=== PATIENT | female | born 1935 | race Caucasian/White ===

== ENCOUNTER 2018-11-12 19:03 | Inpatient (IN) ==
[2018-11-12] MEDS ORDERED: 0.9 % Sodium Chloride 1,000 ML IVC ONE (19:26)
[2018-11-12] MEDS ORDERED: Ipratropium/Albuterol Neb 3 ML IH ONE (19:28)
--- NOTE | 2018-11-12 19:49 | Emergency Department Note ---
Disposition Clinical Impression: Hyponatremia Disposition: Admitted As Inpatient Condition: Fair Referrals: Sherita Kline APN [Primary Care Provider] - Forms: ED Satisfaction Letter Time of Disposition: 22:13 General Adult HPI - General Chief complaint: ED Extremity Problem,Nontraumatic Stated complaint: Difficulty breathing weakness Time Seen by Provider: 11/12/18 19:10 Source: patient, family, EMS Limitations: no limitations Nursing Notes Reviewed: Yes Vital Signs Reviewed: Yes - History of Present Illness HPI Narrative: Ms Devlin was taken to the emergency department by EMS tonight for generalized weakness. No appetite for the last 5 days. She has had some muscle aches. She had a fever about 3 weeks ago per her niece who accompanies her and was on doxycycline but finished that about a week ago. She does have home oxygen for the last 2 years for COPD he has not smoked in 31 years. She has had diffuse muscle aches no nausea vomiting or diarrhea. No stool for 3 days usually has daily formed bowel movement. No change in urinary habits. She has had some pain on urination for weeks. She has been going frequently for several years now. She has had a mild headache no vision change no ear or throat pain but she has had some sinus drainage for the last 5 days. No chest pain but she is more short of breath. Some mild generalized abdominal pain. She felt better after a DuoNeb was given in route to the emergency room. 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 She can ambulate with a walker. No speech issues able to swallow normal food since the stroke in 2015. 2 daughters live with her. Pain Scale: 6 - Related Data Home Medications Medication Instructions Recorded Confirmed Furosemide [Lasix] 40 mg PO DAILY PRN 11/12/18 11/12/18 Previous Rx's Medication Instructions Recorded Acetaminophen [Tylenol] 650 mg PO Q6HR PRN #0 tablet 05/23/16 Albuterol Sulfate [Albuterol 2 puff IH [id number] PRN #0 inhaler 05/23/16 Inhaler] Aspirin Enteric Coated [Aspirin EC] 81 mg PO DAILY #0 tablet. 05/23/16 Atenolol [Tenormin] 25 mg PO DAILY #0 tablet 05/23/16 Budesonide/Formoterol 80/4.5 1 puff IH BIDR #0 inhaler 05/23/16 [Symbicort 80/4.5] Clopidogrel [Plavix] 75 mg PO DAILY #0 tablet 05/23/16 Escitalopram [Lexapro] 20 mg PO DAILY #30 tablet 05/23/16 Ibuprofen [Motrin] 400 mg PO Q8HR PRN #0 tablet 05/23/16 LORazepam [Ativan] 0.5 mg PO TID PRN #0 tablet 05/23/16 Omeprazole [PriLOSEC] 20 mg PO DAILY@0630 #0 capsule. 05/23/16 Allergies Allergy/AdvReac Type Severity Reaction Status Date / Time No Known Allergies Allergy Verified 11/12/18 19:22 Constitutional: Reports: fever, weakness. Denies: chills Eyes: Denies: vision change ENT ED: Reports: congestion. Denies: ear pain, throat pain, dysphagia Cardiovascular: Reports: dyspnea on exertion, other (Some dizziness and lightheadedness). Denies: chest pain, syncope Respiratory: Reports: cough, dyspnea, sputum production Gastrointestinal: Reports: abdominal pain. Denies: nausea, vomiting, diarrhea, melena, hematochezia Genitourinary: Reports: as per HPI, frequency Musculoskeletal: Reports: myalgia Integumentary: Denies: rash Neurological: Reports: headache Endocrine: Reports: fatigue Hematological/Lymphatic: Denies: easy bleeding, easy bruising Past Medical History - Past Medical History Medical history: Reports: arthritis, asthma, COPD, diabetes, fibromyalgia, hypertension Surgical history: Reports: JAD/BSO Psychiatric history: Reports: depression [employer] history: Reports: non-contributory - Social History Smoking Status: Never smoker Smokeless Tobacco Status: No Alcohol use: Reports: none Drug use: Reports: none Physical Exam - General Limitations: no limitations General appearance: alert, in no apparent distress - Head Head exam: atraumatic, normocephalic - Eye Eye exam: Present: normal appearance. Absent: scleral icterus - ENT ENT exam: normal oropharynx, normal external ear exam - Neck Neck exam: Present: normal inspection, full ROM - Chest Chest inspection: Present: normal inspection, symmetric chest wall rise - Respiratory Respiratory exam: Present: respiratory distress (Able to speak in full sentences), wheezes (End expiratory wheezes bilaterally symmetrically with good air exchange), accessory muscle use (Subcostal retractions), other (Inspiratory wet crackles right sided which do not clear with coughing) - Cardiovascular Cardiovascular exam: Present: regular rate, normal rhythm, normal heart sounds - Abdominal Exam Abdominal exam: Present: soft, distention, normal bowel sounds Abdominal tenderness: Present: diffuse, mild - Extremities Exam Extremities exam: Absent: pedal edema, calf tenderness (No calf cord erythema or edema) - Neurological Exam Neurological exam: Present: alert, oriented X3 - Psychiatric Psychiatric exam: Present: normal affect, normal mood - Skin Skin exam: Present: warm, dry Course Vital Signs Temperature 98.1 F 11/12/18 19:18 Pulse Rate 81 11/12/18 19:18 Respiratory Rate 20 11/12/18 19:18 Blood Pressure 155/63 11/12/18 19:18 O2 Sat by Pulse Oximetry 95 11/12/18 19:18 Temperature 98.1 F 11/12/18 19:18 Pulse Rate 82 11/12/18 21:34 Respiratory Rate 19 11/12/18 21:34 Blood Pressure 175/81 11/12/18 21:34 O2 Sat by Pulse Oximetry 98 11/12/18 21:34 Oxygen Delivery Oxygen Delivery Nasal Cannula Medical Decision Making - MDM Narrative Medical decision making narrative: Hyponatremia. Probably secondary to decreased by mouth intake this week. One 24s and appreciable drop from her most recent reading of 134. It might be prudent to have her come in to the hospital for IV fluids. She did receive 1.5 L in the emergency department. We will maintain her a 125 and recheck her sodium in the morning. She is in agreement with admission. Magnesium 1.5. She was given magnesium 800 mg here in the ER 1. COPD exacerbation. Productive cough. No infiltrate on chest x-ray but she does have some evidence of pneumonia on the right side on auscultation. White count however is not increased. Nonetheless she was on doxycycline just a couple of weeks ago and we will add Levaquin 500 mg IV daily. She does have home oxygen but she seems to have some retractions a couple of hours after DuoNeb is given although subjective relief as reported immediately thereafter. It might be prudent to keep her in the hospital for frequent nebs. Blood glucose is 96 so we will add Solu-Medrol as well. Saturations 96% on nasal cannula. I spoke with the covering hospitalist here at [facility] presented the case. She accepted admission. She is in stable condition awaiting transfer to the floor. - Medical Records Medical records reviewed: Yes I reviewed the patient's medical records. - Lab Data Lab results reviewed: Yes I reviewed the patient's lab results. Result diagrams: 11/12/18 20:33 11/12/18 20:52 Lab Results 11/12/18 11/12/18 11/12/18 Range/Units 20:33 20:52 21:07 WBC 5.9 (4.3-11.1) K/mcL RBC 4.89 (3.82-4.97) M/mcL Hgb 14.5 (11.5-15.4) g/dL Hct 44.6 (35.3-44.9) % MCV 91.2 (83.0-100.0) fL MCH 29.7 (28.0-33.3) pg MCHC 32.5 (31.6-35.5) g/dL RDW 15.1 H (11.5-14.5) % Plt Count 182 (140-400) K/mcL MPV 9.6 (9.4-12.4) fL Immature Gran % 0.3 (0-4) % Seg Neutrophils % 68.7 % Lymphocytes % 20.9 % Monocytes % 9.7 % Eosinophils % 0.2 % Basophils % 0.2 % Neutrophils # 4.0 (1.6-8.9) K/mcL Lymphocytes # 1.2 (0.6-4.6) K/mcL Monocytes # 0.6 (0.0-1.3) K/mcL Eosinophils # 0.0 (0.0-0.6) K/mcL Basophils # 0.0 (0.0-0.2) K/mcL D-Dimer 456 (0-500) ng/mLFEU Sodium 124 L (136-145) mEq/L Potassium 3.7 (3.5-5.1) mEq/L Chloride 90 L (98-107) mEq/L Carbon Dioxide 21 L (23-29) mEq/L BUN 12 (8-23) mg/dL Creatinine 0.68 (0.60-1.20) mg/dL Est GFR ( Amer) > 60 (> 60) Est GFR (Non-Af Amer) > 60 (> 60) BUN/Creatinine Ratio 18 (6-26) Glucose 120 H (70-105) mg/dL POC Glucose (70-99) mg/dL Calculated Osmolality 259 L (280-300) Calcium 8.9 (8.6-10.3) mg/dL Magnesium 1.5 L (1.6-2.6) mg/dL Total Bilirubin 0.6 (0.3-1.0) mg/dL AST 24 (13-39) Units/L ALT 15 (7-52) Units/L Alkaline Phosphatase 79 (34-104) Units/L Troponin I < 0.03 (< 0.04) ng/mL B-Natriuretic Peptide (Less than 100) pg/mL Serum Total Protein 6.2 L (6.4-8.9) g/dL Albumin 3.3 L (3.5-5.7) g/dL Globulin 2.9 (2.4-3.5) g/dL Albumin/Globulin Ratio 1.1 (1.1-2.2) Lipase 7 L (11-82) Units/L TSH 0.836 (0.340-5.600) mcIU/mL Urine Color (Yellow) Urine Clarity (Clear) Urine pH (5.0-8.0) pH Units Ur Specific [place] (1.010-1.025) Urine Protein (Neg-Trace) mg/dL Urine Glucose (UA) (Normal) mg/dL Urine Ketones (Negative) mg/dL Urine Blood (Negative) Urine Nitrite (Negative) Urine Bilirubin (Negative) Urine Urobilinogen (Normal) mg/dL Ur Leukocyte Esterase (Negative) Urine Microscopic RBC (0-3) per hpf Urine Microscopic WBC (0-3) per hpf Ur Squamous Epith Cells (None-Few) per lpf Ur Transition Epith Cell (None-Few) per hpf Urine Bacteria (None-Few) per hpf Ur Culture Indicated? (NO) 11/12/18 11/12/18 11/12/18 Range/Units 21:07 22:07 22:19 WBC (4.3-11.1) K/mcL RBC (3.82-4.97) M/mcL Hgb (11.5-15.4) g/dL Hct (35.3-44.9) % MCV (83.0-100.0) fL MCH (28.0-33.3) pg MCHC (31.6-35.5) g/dL RDW (11.5-14.5) % Plt Count (140-400) K/mcL MPV (9.4-12.4) fL Immature Gran % (0-4) % Seg Neutrophils % % Lymphocytes % % Monocytes % % Eosinophils % % Basophils % % Neutrophils # (1.6-8.9) K/mcL Lymphocytes # (0.6-4.6) K/mcL Monocytes # (0.0-1.3) K/mcL Eosinophils # (0.0-0.6) K/mcL Basophils # (0.0-0.2) K/mcL D-Dimer (0-500) ng/mLFEU Sodium (136-145) mEq/L Potassium (3.5-5.1) mEq/L Chloride (98-107) mEq/L Carbon Dioxide (23-29) mEq/L BUN (8-23) mg/dL Creatinine (0.60-1.20) mg/dL Est GFR ( Amer) (> 60) Est GFR (Non-Af Amer) (> 60) BUN/Creatinine Ratio (6-26) Glucose (70-105) mg/dL POC Glucose 96 (70-99) mg/dL Calculated Osmolality (280-300) Calcium (8.6-10.3) mg/dL Magnesium (1.6-2.6) mg/dL Total Bilirubin (0.3-1.0) mg/dL AST (13-39) Units/L ALT (7-52) Units/L Alkaline Phosphatase (34-104) Units/L Troponin I (< 0.04) ng/mL B-Natriuretic Peptide 22 (Less than 100) pg/mL Serum Total Protein (6.4-8.9) g/dL Albumin (3.5-5.7) g/dL Globulin (2.4-3.5) g/dL Albumin/Globulin Ratio (1.1-2.2) Lipase (11-82) Units/L TSH (0.340-5.600) mcIU/mL Urine Color Yellow (Yellow) Urine Clarity Clear (Clear) Urine pH 6.5 (5.0-8.0) pH Units Ur Specific [place] 1.020 (1.010-1.025) Urine Protein 30 H (Neg-Trace) mg/dL Urine Glucose (UA) Normal (Normal) mg/dL Urine Ketones 15 H (Negative) mg/dL Urine Blood Negative (Negative) Urine Nitrite Negative (Negative) Urine Bilirubin Negative (Negative) Urine Urobilinogen Normal (Normal) mg/dL Ur Leukocyte Esterase Negative (Negative) Urine Microscopic RBC 0-3 (0-3) per hpf Urine Microscopic WBC 0-3 (0-3) per hpf Ur Squamous Epith Cells Many H (None-Few) per lpf Ur Transition Epith Cell Few (None-Few) per hpf Urine Bacteria Few (None-Few) per hpf Ur Culture Indicated? NO (NO) - Radiology Data Radiology results reviewed: Yes I reviewed the patient's radiology results. - EKG Data EKG #1 EKG attestation: Yes I reviewed and interpreted this EKG. EKG results narrative: EKG as interpreted by me normal sinus rhythm 91 bpm. Left axis deviation. T wave inversion one half box aVL. This appears to be an isolated finding. No Q waves. No evidence of hypertrophy. No comparison available.
[2018-11-12 20:40] LABS: Basophils % 0.2 %; Eosinophils % 0.2 %; Hematocrit 44.6 % (35.3-44.9); Hemoglobin 14.5 g/dL (11.5-15.4); Immature Granulocytes % 0.3 % (0-4); Lymphocytes # 1.2 K/mcL (0.6-4.6); Lymphocytes % 20.9 %; Mean Corpuscular HGB Conc 32.5 g/dL (31.6-35.5); Mean Corpuscular Hemoglobin 29.7 pg (28.0-33.3); Mean Corpuscular Volume 91.2 fL (83.0-100.0); Mean Platelet Volume 9.6 fL (9.4-12.4); Monocytes # 0.6 K/mcL (0.0-1.3); Monocytes % 9.7 %; Platelet Count 182 K/mcL (140-400); Red Blood Count 4.89 M/mcL (3.82-4.97); Red Cell Distribution Width 15.1 % (11.5-14.5); Segmented Neutrophils % 68.7 %
[2018-11-12] MEDS ORDERED: 0.9 % Sodium Chloride 500 ML IVC ONE (20:57)
[2018-11-12 21:39] LABS: Alanine Aminotransferase 15 Units/L (7-52); Albumin 3.3 g/dL (3.5-5.7); Albumin/Globulin Ratio 1.1 (1.1-2.2); Alkaline Phosphatase 79 Units/L (34-104); Aspartate Amino Transferase 24 Units/L (13-39); Bilirubin,Total 0.6 mg/dL (0.3-1.0); Calcium 8.9 mg/dL (8.6-10.3); Carbon Dioxide 21 mEq/L (23-29); Chloride 90 mEq/L (98-107); Globulin 2.9 g/dL (2.4-3.5); Lipase 7 Units/L (11-82); Magnesium 1.5 mg/dL (1.6-2.6); Potassium 3.7 mEq/L (3.5-5.1); Sodium 124 mEq/L (136-145); Thyroid Stimulating Hormone 0.836 mcIU/mL (0.340-5.600); Total Protein 6.2 g/dL (6.4-8.9); Troponin I < 0.03 ng/mL (< 0.04); eGFR For Non-African Americans > 60 (> 60)
[2018-11-12] MEDS ORDERED: Levofloxacin 500 MG/100 ML 500 MG/100 ML BAG IVPB ONE (22:11)
[2018-11-12 22:12] LABS: Bilirubin,Urine Negative (Negative); Blood,Urine Negative (Negative); Clarity,Urine Clear (Clear); Color,Urine Yellow (Yellow); Glucose,Urine (UA) Normal (Normal); Ketones,Urine 15 mg/dL (Negative); Leukocyte Esterase,Urine Negative (Negative); Nitrite,Urine Negative (Negative); PH,Urine 6.5 pH Units (5.0-8.0); Protein,Urine 30 mg/dL (Neg-Trace); Urobilinogen,Urine Normal (Normal)
[2018-11-12] MEDS ORDERED: Magnesium Oxide 400 MG TABLET PO SCH (22:15)
[2018-11-12 22:33] LABS: BUN/Creatinine Ratio 18 (6-26); Blood Urea Nitrogen 12 mg/dL (8-23); Glucose 120 mg/dL (70-105); Osmolality,Calculated 259 (280-300)
[2018-11-12] MEDS ORDERED: methylPREDNISolone 125 MG/2 ML VIAL IVP ONE (22:36)
[2018-11-12 22:49] LABS: RBC,Urine 0-3 per hpf (0-3)
[2018-11-12 22:50] LABS: Bacteria,Urine Few per hpf (None-Few); Squamous Epithelial Cell,Urine Many per lpf (None-Few); Transitional Epi Cells,Urine Few per hpf (None-Few); WBC,Urine 0-3 per hpf (0-3)
[2018-11-12] MEDS ORDERED: Ondansetron 4 MG/2 ML VIAL IVP PRN (23:27)
[2018-11-12] MEDS ORDERED: Naloxone 0.4 MG/ML INJ IVP PRN (23:27)
[2018-11-13] MEDS: Levofloxacin 500 MG/100 ML 500 MG/100 ML BAG IVPB SCH ×2 (00:26→21:52)
[2018-11-13] MEDS: MethylPREDNISolone 40 MG/ML VIAL IVP SCH ×5 (00:26→23:02)
[2018-11-13] MEDS: 0.9 % Sodium Chloride 1,000 ML IVC SCH ×2 (00:35→09:26)
[2018-11-13 05:59] LABS: BUN/Creatinine Ratio 19 (6-26); Blood Urea Nitrogen 10 mg/dL (8-23); Calcium 8.1 mg/dL (8.6-10.3); Carbon Dioxide 27 mEq/L (23-29); Chloride 93 mEq/L (98-107); Glucose 179 mg/dL (70-105); Magnesium 1.7 mg/dL (1.6-2.6); Osmolality,Calculated 268 (280-300); Potassium 3.4 mEq/L (3.5-5.1); Sodium 127 mEq/L (136-145); eGFR For Non-African Americans > 60 (> 60)
[2018-11-13] MEDS: *HR* Enoxaparin 40 MG/0.4 ML SYRINGE SQ SCH (06:35)
[2018-11-13] MEDS: Magnesium Oxide 400 MG TABLET PO SCH (09:26)
[2018-11-13] MEDS: Aspirin Enteric Coated 81 MG Tablet PO SCH (09:27)
[2018-11-13] MEDS: Ipratropium/Albuterol Neb 3 ML IH PRN ×3 (10:06→19:27)
--- NOTE | 2018-11-13 15:51 | Internal Med History&Physical ---
Date of Encounter: 11/13/18 Time of Encounter: 14:30 Assessment and Plan (1) Acute exacerbation of chronic obstructive pulmonary disease (COPD) Current visit: Yes Status: Acute DuoNeb's steroid [place] cannula oxygen (2) Failure to thrive Current visit: Yes Status: Acute Assist with meals mechanical soft diet We will check vitamin levels Add Megace Qualifiers: Failure to thrive age range: in adult Qualified Code(s): R62.7 - Adult failure to thrive (3) Hyponatremia Current visit: Yes Status: Acute IV normal saline with potassium for hypokalemia Internal Medicine - H&P: HPI Chief complaint: acute COPD exacerbation, failure to thrive Admitted From: Home History of present illness: Ms. Devlin is a 82 year old female who presented to ED from home her daughter brought her in. Patient has increased shortness of breath and wheezing. She has been on 3 L nasal cannula oxygen at home chronically for moderate severe COPD. In the emergency room patient was treated with steroid and DuoNeb and maintained oxygenation on 3 L nasal cannula. Patient has become increasingly weak and debilitated. Lately not getting out of bed at home. Has not been eating well for months and has not eaten much at all in the past week per report. Patient has a mild cough but sputum is scant. Her sodium is low. Her potassium is low. Her creatinine is low. Her magnesium is low. Her albumin is low. Past Med Surg Social Fam HX - Past Medical History Medical history: arthritis, asthma, COPD, diabetes, fibromyalgia, hypertension Psychiatric history: depression - Past Surgical History Surgical History: hysterectomy, JAD/BSO - Social History Smoking Status: Never smoker Smokeless Tobacco Status: No Alcohol use: none Drug use: none Internal Medicine - H&P: Meds Acetaminophen [Tylenol] 650 mg PO Q6HR PRN #0 tablet 05/23/16 [Rx] Albuterol Sulfate [Albuterol Inhaler] 2 puff IH [id number] PRN #0 inhaler 05/23/16 [Rx] Aspirin Enteric Coated [Aspirin EC] 81 mg PO DAILY #0 tablet. 05/23/16 [Rx] Atenolol [Tenormin] 25 mg PO DAILY #0 tablet 05/23/16 [Rx] Budesonide/Formoterol 80/4.5 [Symbicort 80/4.5] 1 puff IH BIDR #0 inhaler 05/23/16 [Rx] Clopidogrel [Plavix] 75 mg PO DAILY #0 tablet 05/23/16 [Rx] Escitalopram [Lexapro] 20 mg PO DAILY #30 tablet 05/23/16 [Rx] Ibuprofen [Motrin] 400 mg PO Q8HR PRN #0 tablet 05/23/16 [Rx] LORazepam [Ativan] 0.5 mg PO TID PRN #0 tablet 05/23/16 [Rx] Omeprazole [PriLOSEC] 20 mg PO DAILY@0630 #0 capsule. 05/23/16 [Rx] Furosemide [Lasix] 40 mg PO DAILY PRN 11/12/18 [History] Allergy/AdvReac Type Severity Reaction Status Date / Time No Known Allergies Allergy Verified 11/12/18 19:22 All Systems PM: A 10-system review of systems was performed and is negative for pertinent findings except as documented above in the HPI. - Constitutional Vitals: Temp Pulse Resp BP Pulse Ox 97.4 F L 67 18 166/70 96 11/13/18 11:33 11/13/18 11:33 11/13/18 15:17 11/13/18 11:33 11/13/18 15:17 General appearance: Present: cooperative, mild distress Exam: Physical Exam - General Limitations: no limitations General appearance: alert, frail and fatigued hypokinetic laying in the bed but in no apparent distress - Head Head exam: atraumatic, normocephalic - Eye Eye exam: Present: normal appearance. Absent: scleral icterus - ENT ENT exam: normal oropharynx, normal external ear exam - Neck Neck exam: Present: normal inspection, full ROM no bruit - Chest Chest inspection: Present: normal inspection, symmetric chest wall rise - Respiratory Respiratory exam: Present: Musical wheezes fair air exchange accessory muscle use (Subcostal retractions) - Cardiovascular Cardiovascular exam: Present: regular rate, normal rhythm, normal heart sounds distant - Abdominal Exam Abdominal exam: Present: soft, distention, normal bowel sounds Abdominal tenderness: Present: diffuse, mild - Extremities Exam Extremities exam: Absent: pedal edema, calf tenderness (No calf cord erythema or edema) - Neurological Exam Neurological exam: Present: alert, oriented X3 - Psychiatric Psychiatric exam: Present: Withdrawn with flat affect - Skin Skin exam: Present: warm, dry pale Internal Med - H&P Results - Labs CBC & Chem 7: 11/12/18 20:33 11/13/18 05:35 Labs: Short CBC 11/12/18 Range/Units 20:33 WBC 5.9 (4.3-11.1) K/mcL Hgb 14.5 (11.5-15.4) g/dL Hct 44.6 (35.3-44.9) % Plt Count 182 (140-400) K/mcL Neutrophils # 4.0 (1.6-8.9) K/mcL BMP 11/12/18 11/13/18 20:52 05:35 Sodium 124 L 127 L Potassium 3.7 3.4 L Chloride 90 L 93 L Carbon Dioxide 21 L 27 BUN 12 10 Creatinine 0.68 0.53 L Glucose 120 H 179 H Calcium 8.9 8.1 L Cardiac Enzymes 11/12/18 Range/Units 20:52 Troponin I < 0.03 (< 0.04) ng/mL Liver Function 11/12/18 Range/Units 20:52 Total Bilirubin 0.6 (0.3-1.0) mg/dL AST 24 (13-39) Units/L ALT 15 (7-52) Units/L Alkaline Phosphatase 79 (34-104) Units/L Albumin 3.3 L (3.5-5.7) g/dL Urine 11/12/18 Range/Units 22:07 Urine Color Yellow (Yellow) Urine Clarity Clear (Clear) Urine pH 6.5 (5.0-8.0) pH Units Ur Specific [place] 1.020 (1.010-1.025) Urine Protein 30 H (Neg-Trace) mg/dL Urine Glucose (UA) Normal (Normal) mg/dL - Impressions ITS Impressions Chest X-Ray 11/12/18 19:28 IMPRESSION: Possible small bilateral effusions. Otherwise unremarkable chest with no overt failure. D/ / Main Henao MD / Main Henao MD Interpreting Provider: Main Henao MD X-Ray 11/12/18 19:28 IMPRESSION: Only partial visualization of the abdomen. No obvious acute finding in the visualized portion of the abdomen. An examination centered lower of the abdomen is suggested. D/ / 11/12/2018 19:54:10 Yin Melendez MD / thao Interpreting Provider: Yin Melendez MD
[2018-11-13] MEDS: Megestrol Acetate 400 MG/10 ML UDC PO SCH (16:53)
[2018-11-13] MEDS: Acetaminophen 325 MG TABLET PO PRN (16:53)
[2018-11-13] MEDS: Nystatin SUSP 5 ML UD.LIQ PO SCH ×2 (16:53→20:26)
[2018-11-13] MEDS: 0.9 % Sodium Chloride w KCl 40 MEQ/1,000 ML MLS IVC SCH (17:41)
[2018-11-13] MEDS: Nystatin POWDER 30 GM BOTTLE TP SCH (20:26)
[2018-11-14] MEDS: *HR* LORazepam 0.5 MG TABLET PO PRN (00:29)
[2018-11-14] MEDS: Acetaminophen 325 MG TABLET PO PRN ×3 (00:30→19:55)
[2018-11-14] MEDS: MethylPREDNISolone 40 MG/ML VIAL IVP SCH ×3 (05:09→17:37)
[2018-11-14] MEDS: *HR* Enoxaparin 40 MG/0.4 ML SYRINGE SQ SCH (05:10)
[2018-11-14] MEDS: 0.9 % Sodium Chloride w KCl 40 MEQ/1,000 ML MLS IVC SCH ×2 (06:13→19:57)
[2018-11-14] MEDS: Magnesium Oxide 400 MG TABLET PO SCH (10:37)
[2018-11-14] MEDS: Ipratropium/Albuterol Neb 3 ML IH PRN ×3 (10:37→19:27)
[2018-11-14] MEDS: Megestrol Acetate 400 MG/10 ML UDC PO SCH (10:37)
[2018-11-14] MEDS: Aspirin Enteric Coated 81 MG Tablet PO SCH (10:38)
[2018-11-14] MEDS: Nystatin SUSP 5 ML UD.LIQ PO SCH ×4 (10:38→19:55)
[2018-11-14] MEDS: Nystatin POWDER 30 GM BOTTLE TP SCH ×2 (10:46→19:57)
--- NOTE | 2018-11-14 13:06 | Internal Med Progress Note ---
Date of Encounter: 11/14/18 Time of Encounter: 13:40 - Assessment and plan (1) Acute exacerbation of chronic obstructive pulmonary disease (COPD) Current Visit: Yes Status: Acute (2) Failure to thrive Current Visit: Yes Status: Acute Qualifiers: Failure to thrive age range: in adult Qualified Code(s): R62.7 - Adult failure to thrive (3) Hyponatremia Current Visit: Yes Status: Acute - Subjective Interval history: Assessment and Plan (1) Acute exacerbation of chronic obstructive pulmonary disease (COPD) Current visit: Yes Status: Acute DuoNeb's steroid continue l cannula oxygen (2) Failure to thrive Current visit: Yes Status: Acute Assist with meals mechanical soft diet We will check vitamin levels Added Megace pt ate a little better today and did feed herself some pt dtr relates this is complicated by her long standing depression over loss of family members pt not suicidal and is on lexapro Qualifiers: Failure to thrive age range: in adult Qualified Code(s): R62.7 - Adult failure to thrive (3) Hyponatremia Current visit: Yes Status: Acute IV normal saline with potassium for hypokalemia improving blood sugar slight on high side due to steroids Internal Medicine - H&P: HPI Chief complaint: acute COPD exacerbation, failure to thrive Admitted From: Home History of present illness: Ms. Devlin is a 82 year old female with exacerbation of COPD . Patient has increased shortness of breath and wheezing. She has been on 3 L nasal cannula oxygen at home chronically for moderate severe COPD. In the emergency room patient was treated with steroid and DuoNeb and maintained oxygenation on 3 L nasal cannula. Patient has become increasingly weak and debilitated. Lately not getting out of bed at home due to depression and weakness. Has not been eating well for months and has not eaten much at all in the past we ek per report. Patient has a mild cough but sputum is scant. Her sodium is low. Her potassium is low. Her creatinine is low. Her magnesium is low. Her albumin is low. Discussed pt seems to respond to the megace and ate better today - Constitutional General appearance: Present: cooperative, mild distress Exam: Physical Exam - General Limitations: no limitations General appearance: alert, frail and fatigued hypokinetic laying in the bed but in no apparent distress - Head Head exam: atraumatic, normocephalic - Eye Eye exam: Present: normal appearance. Absent: scleral icterus - ENT ENT exam: normal oropharynx, normal external ear exam - Neck Neck exam: Present: normal inspection, full ROM no bruit - Chest Chest inspection: Present: normal inspection, symmetric chest wall rise - Respiratory Respiratory exam: Present: Musical wheezes fair air exchange accessory muscle use (Subcostal retractions) - Cardiovascular Cardiovascular exam: Present: regular rate, normal rhythm, normal heart sounds distant - Abdominal Exam Abdominal exam: Present: soft, distention, normal bowel sounds Abdominal tenderness: Present: diffuse, mild - Extremities Exam Extremities exam: Absent: pedal edema, calf tenderness (No calf cord erythema or edema) - Neurological Exam Neurological exam: Present: alert, oriented X3 - Psychiatric Psychiatric exam: Present: Withdrawn with flat affect - Skin Skin exam: Present: warm, dry pale - Constitutional Vitals: Temp Pulse Resp BP Pulse Ox 97.1 F L 65 14 175/79 96 11/14/18 11:27 11/14/18 11:27 11/14/18 11:27 11/14/18 11:27 11/14/18 11:27 General appearance: Present: cooperative, mild distress Internal Medicine: Result - Labs CBC & Chem 7: 11/12/18 20:33 11/13/18 05:35 - ABG Interpretation ABG results: PT/INR, D-dimer D-Dimer 456 ng/mLFEU (0-500) 11/12/18 21:07 - Impressions Impressions KUB X-Ray 11/12/18 19:28 IMPRESSION: Only partial visualization of the abdomen. No obvious acute finding in the visualized portion of the abdomen. An examination centered lower of the abdomen is suggested. D/ / 11/12/2018 19:54:10 Yin Melendez MD / [email or web address] Interpreting Provider: Yin Melendez MD Consult Discharge Plan - Plan Referrals: Sherita Kline APN [Primary Care Provider] -
[2018-11-14] MEDS: amLODIPine 5 MG TABLET PO SCH (14:36)
[2018-11-14] MEDS ORDERED: Insulin LISPRO 300 UNITS/3 ML VIAL SQ ONE (21:30)
[2018-11-14] MEDS: Levofloxacin 500 MG/100 ML 500 MG/100 ML BAG IVPB SCH (22:31)
[2018-11-15] MEDS: *HR* Enoxaparin 40 MG/0.4 ML SYRINGE SQ SCH (04:45)
[2018-11-15] MEDS: MethylPREDNISolone 40 MG/ML VIAL IVP SCH ×2 (04:45→18:16)
[2018-11-15] MEDS: Acetaminophen 325 MG TABLET PO PRN ×2 (05:01→15:10)
[2018-11-15 05:46] LABS: Hematocrit 38.2 % (35.3-44.9); Immature Granulocytes % 0.4 % (0-4); Lymphocytes # 0.5 K/mcL (0.6-4.6); Lymphocytes % 9.7 %; Mean Corpuscular HGB Conc 33.8 g/dL (31.6-35.5); Mean Corpuscular Hemoglobin 29.4 pg (28.0-33.3); Mean Platelet Volume 9.1 fL (9.4-12.4); Monocytes # 0.3 K/mcL (0.0-1.3); Monocytes % 4.7 %; Neutrophils # 4.6 K/mcL (1.6-8.9); Platelet Count 177 K/mcL (140-400); Red Blood Count 4.39 M/mcL (3.82-4.97); Red Cell Distribution Width 14.4 % (11.5-14.5); Segmented Neutrophils % 85.2 %
[2018-11-15 05:48] LABS: Hemoglobin 12.9 g/dL (11.5-15.4)
[2018-11-15 06:00] LABS: BUN/Creatinine Ratio 13 (6-26); Blood Urea Nitrogen 8 mg/dL (8-23); Calcium 8.5 mg/dL (8.6-10.3); Carbon Dioxide 33 mEq/L (23-29); Chloride 91 mEq/L (98-107); Glucose 194 mg/dL (70-105); Osmolality,Calculated 274 (280-300); Potassium 3.4 mEq/L (3.5-5.1); Sodium 130 mEq/L (136-145); eGFR For Non-African Americans > 60 (> 60)
[2018-11-15] MEDS: Magnesium Oxide 400 MG TABLET PO SCH (08:40)
[2018-11-15] MEDS: Nystatin SUSP 5 ML UD.LIQ PO SCH ×4 (08:40→21:01)
[2018-11-15] MEDS: Megestrol Acetate 400 MG/10 ML UDC PO SCH (08:40)
[2018-11-15] MEDS: Nystatin POWDER 30 GM BOTTLE TP SCH ×2 (08:41→21:03)
[2018-11-15] MEDS: Aspirin Enteric Coated 81 MG Tablet PO SCH (08:41)
[2018-11-15] MEDS: amLODIPine 5 MG TABLET PO SCH (08:41)
[2018-11-15] MEDS: 0.9 % Sodium Chloride w KCl 40 MEQ/1,000 ML MLS IVC SCH ×2 (11:10→23:50)
--- NOTE | 2018-11-15 13:13 | Internal Med Progress Note ---
Date of Encounter: 11/15/18 Time of Encounter: 13:11 - Assessment and plan (1) Acute exacerbation of chronic obstructive pulmonary disease (COPD) Current Visit: Yes Status: Acute Assessment and plan: Improving. Continue IV antibiotic and steroids. Continue inhaled treatments. Continue oxygen per nasal cannula. Maintaining sets greater than 92%. - Time Spent With Patient less than 15 minutes - Subjective Interval history: Resting in bed. Denies shortness of breath, chest pain, fever, chills, nausea vomiting or diarrhea. Did not eat lunch but did drink ensure supplements. - Constitutional Vitals: Temp Pulse Resp BP Pulse Ox 97.5 F L 61 18 188/76 97 11/15/18 11:49 11/15/18 11:49 11/15/18 11:49 11/15/18 11:49 11/15/18 11:49 General appearance: Present: cooperative, mild distress, A&O X 3, pleasant, no acute distress, obese, answers questions appropriately - Head Head exam: Present: atraumatic, normocephalic - Eye Eye exam: Present: PERRL, conjuntiva pink, sclera anicteric Pupils: Present: PERRL - Neck Neck exam general surgery: Present: supple, trachea midline. Absent: lymphadenopathy - Respiratory Respiratory exam: Present: CTAB. Absent: accessory muscle use, rales, rhonchi, wheezes Additional comments: Diminished bilateral basis - Cardiovascular Cardiovascular exam: Present: RRR, +S1, +S2. Absent: diastolic murmur, gallop, rubs, systolic murmur - GI/Abdominal GI/Abdominal exam: Present: normal bowel sounds, soft, no peritoneal signs. Absent: distended, tenderness - Extremities Exam Extremities exam: Present: warm, radial pulses palpable and symmetrical. Absent: calf tenderness, cyanotic, pedal edema - Neurological Exam Neurological exam: Present: CN II-XII intact, oriented X3, no focal deficits. Absent: pronater drift, facial droop, speech deficit - Skin Skin exam: Present: dry, intact Internal Medicine: Result - Labs CBC & Chem 7: 11/15/18 05:25 11/15/18 05:25 Labs: Short CBC 11/15/18 Range/Units 05:25 WBC 5.4 (4.3-11.1) K/mcL Hgb 12.9 D (11.5-15.4) g/dL Hct 38.2 (35.3-44.9) % Plt Count 177 (140-400) K/mcL Neutrophils # 4.6 (1.6-8.9) K/mcL BMP 11/15/18 05:25 Sodium 130 L Potassium 3.4 L Chloride 91 L Carbon Dioxide 33 H BUN 8 Creatinine 0.63 Glucose 194 H Calcium 8.5 L - ABG Interpretation ABG results: PT/INR, D-dimer D-Dimer 456 ng/mLFEU (0-500) 11/12/18 21:07 Consult Discharge Plan - Plan Referrals: Sherita Kline APN [Primary Care Provider] -
[2018-11-15] MEDS: Ipratropium/Albuterol Neb 3 ML IH PRN ×2 (14:34→21:06)
[2018-11-15] MEDS: *HR* LORazepam 0.5 MG TABLET PO PRN (21:05)
[2018-11-15] MEDS: Levofloxacin 500 MG/100 ML 500 MG/100 ML BAG IVPB SCH (23:47)
[2018-11-16] MEDS: MethylPREDNISolone 40 MG/ML VIAL IVP SCH ×2 (06:20→18:13)
[2018-11-16] MEDS: *HR* Enoxaparin 40 MG/0.4 ML SYRINGE SQ SCH (06:20)
[2018-11-16] MEDS: Megestrol Acetate 400 MG/10 ML UDC PO SCH (07:54)
[2018-11-16] MEDS: Nystatin SUSP 5 ML UD.LIQ PO SCH ×3 (07:55→18:12)
[2018-11-16] MEDS: Acetaminophen 325 MG TABLET PO PRN ×2 (07:56→18:12)
[2018-11-16] MEDS: Aspirin Enteric Coated 81 MG Tablet PO SCH (07:57)
[2018-11-16] MEDS: Magnesium Oxide 400 MG TABLET PO SCH (07:57)
[2018-11-16] MEDS: Nystatin POWDER 30 GM BOTTLE TP SCH (07:58)
[2018-11-16] MEDS ORDERED: cloNIDine HCl 0.1 MG TABLET PO PRN (09:43)
[2018-11-16] MEDS: amLODIPine 5 MG TABLET PO SCH (09:58)
--- NOTE | 2018-11-16 10:58 | Internal Med Progress Note ---
Addendum entered and electronically signed by Reese Nevarez MD 11/16/18 12:43: I have personally performed a face to face evaluation on this patient. I have r eviewed and agree with the care plan. History and Exam by me shows: Patient is doing well but feels that she is not strong enough to go home. She is still making phlegm but this is now white to clear, not colored. Her breathing is near baseline but she is fatigued. Per nursing, family would like her to have rehabilitation if she qualifies. Of note, family also states that she is able to ambulate and care for herself even though she has told us that she is nonambulatory and refuses to eat on her own. She continues IV steroids and antibiotics. Discussed care with other providers and/or nursing. Patient has no complaint of chest discomfort, dyspnea, orthopnea, palpitations, nausea or vomiting, constipation or diarrhea, other changes in bowel habits, difficulty with urination, rash or itching, or other new complaints, except as mentioned above. Review of systems is otherwise negative. Examination: (Except as mentioned above): General: In no apparent distress. Alert and oriented 3. Nondiaphoretic. Head: Atraumatic and normocephalic. Respiratory: No use of accessory muscles. Lungs are clear throughout with the exception of a squeaky wheeze, end-expiratory. Airflow is diminished but audible. Cardiovascular: Regular rate and rhythm without murmur appreciated. Abdomen: Bowel sounds are normal. No hepatosplenomegaly mass or tenderness appreciated. Obese and therefore difficult to palpate deeply. Extremities: No cyanosis clubbing or edema. Skin: Warm and non-diaphoretic with no new lesions noted. We will ask physical therapy and occupational therapy to assess. Concern is that she will not participate in therapy because of motivation. We hope that she will be able to be discharged, tomorrow. Original Note: Date of Encounter: 11/16/18 Time of Encounter: 10:56 - Assessment and plan (1) Acute exacerbation of chronic obstructive pulmonary disease (COPD) Current Visit: Yes Status: Acute Assessment and plan: Improving. Continue IV antibiotic and steroids. Continue inhaled treatments. Continue oxygen per nasal cannula. Maintaining sets greater than 92%. (2) Hypertension Current Visit: Yes Status: Acute Assessment and plan: continue norvasc, clonidine added prn. monitor BP. Qualifiers: Hypertension type: essential hypertension Qualified Code(s): I10 - Essential (primary) hypertension - Time Spent With Patient less than 15 minutes - Subjective Interval history: Resting in bed. Denies shortness of breath, chest pain, fever, chills, nausea vomiting or diarrhea. states she doesnt have much of an appetite but drinking ensure supplements.. - Constitutional Vitals: Temp Pulse Resp BP Pulse Ox 97.6 F 74 16 180/79 97 11/16/18 06:35 11/16/18 06:35 11/16/18 06:35 11/16/18 09:46 11/16/18 06:35 General appearance: Present: cooperative, mild distress, A&O X 3, pleasant, no acute distress, obese, answers questions appropriately - Head Head exam: Present: atraumatic, normocephalic - Eye Eye exam: Present: PERRL, conjuntiva pink, sclera anicteric Pupils: Present: PERRL - Neck Neck exam general surgery: Present: supple, trachea midline. Absent: lymphadenopathy - Respiratory Respiratory exam: Present: CTAB. Absent: accessory muscle use, rales, rhonchi, wheezes Additional comments: diminished bilat bases - Cardiovascular Cardiovascular exam: Present: RRR, +S1, +S2. Absent: diastolic murmur, gallop, rubs, systolic murmur - GI/Abdominal GI/Abdominal exam: Present: normal bowel sounds, soft, no peritoneal signs. Absent: distended, tenderness - Extremities Exam Extremities exam: Present: warm, radial pulses palpable and symmetrical. Absent: calf tenderness, cyanotic, pedal edema - Neurological Exam Neurological exam: Present: CN II-XII intact, oriented X3, no focal deficits. Absent: pronater drift, facial droop, speech deficit - Skin Skin exam: Present: dry, intact Internal Medicine: Result - Labs CBC & Chem 7: 11/15/18 05:25 11/15/18 05:25 - ABG Interpretation ABG results: PT/INR, D-dimer D-Dimer 456 ng/mLFEU (0-500) 11/12/18 21:07 Consult Discharge Plan - Plan Referrals: Sherita Kline APN [Primary Care Provider] -
[2018-11-16] MEDS: 0.9 % Sodium Chloride w KCl 40 MEQ/1,000 ML MLS IVC SCH (14:31)
--- NOTE | 2018-11-16 16:39 | Electrocardiograph Report ---
[place] [id number] Test Date: 2018-11-12 Pat Name: Ledy Devlin Department: 2000 Room: 116 Gender: F Photograph Inspector: : 1935 Requested By: Main Maldonado Order Number: [id number] Reading MD: Deandra Silverio Measurements Intervals [place] Rate: 91 P: -1 KS: 166 QRS: -37 QRSD: 89 T: 65 QT: 333 QTc: 382 Interpretive Statements SINUS RHYTHM WITH OCCASIONAL SUPRAVENTRICULAR PREMATURE COMPLEXES MARKED LEFT AXIS DEVIATION PATTERN CONSISTENT WITH PULMONARY DISEASE NONSPECIFIC ST & T-WAVE ABNORMALITY Electronically Signed On 11-16-2018 16:38:03 EST by Deandra Silverio
[2018-11-17] MEDS: Levofloxacin 500 MG/100 ML 500 MG/100 ML BAG IVPB SCH (00:06)
[2018-11-17] MEDS: *HR* LORazepam 0.5 MG TABLET PO PRN (00:06)
[2018-11-17] MEDS: Nystatin SUSP 5 ML UD.LIQ PO SCH ×3 (00:06→11:18)
[2018-11-17] MEDS: Nystatin POWDER 30 GM BOTTLE TP SCH ×2 (00:12→10:12)
[2018-11-17] MEDS: 0.9 % Sodium Chloride w KCl 40 MEQ/1,000 ML MLS IVC SCH (05:59)
[2018-11-17] MEDS: MethylPREDNISolone 40 MG/ML VIAL IVP SCH (06:02)
[2018-11-17] MEDS: Acetaminophen 325 MG TABLET PO PRN (06:03)
[2018-11-17] MEDS: *HR* Enoxaparin 40 MG/0.4 ML SYRINGE SQ SCH (06:06)
[2018-11-17] MEDS: Megestrol Acetate 400 MG/10 ML UDC PO SCH (10:11)
[2018-11-17] MEDS: Aspirin Enteric Coated 81 MG Tablet PO SCH (10:11)
[2018-11-17] MEDS: Magnesium Oxide 400 MG TABLET PO SCH (10:11)
[2018-11-17] MEDS: amLODIPine 5 MG TABLET PO SCH (10:12)
--- NOTE | 2018-11-17 13:21 | Physician Discharge Referral ---
Addendum entered and electronically signed by Reese Nevarez MD 11/17/18 13:45: Original Note: Home Health/Hosp Referral Info Transfer to: Home Health Provider in Charge Post Discharge: PCP - Diagnosis (1) Acute exacerbation of chronic obstructive pulmonary disease (COPD) Priority: Primary Status: Acute (2) Hypertension Priority: Secondary Status: Chronic - Respiratory Orders Smoking Cessation: Smoking cessation has been advised. For more information, call the [place] Tobacco Quit Line at 3-175-RXYU-NOW. - Activity Activity Orders: Ambulate, Walker - Services Needed Following services are medically necessary services: Nursing, Home Health Aide, Physical Therapy, Occupational Therapy - Transfer Medications Home Medications: Acetaminophen [Tylenol] 650 mg PO Q6HR PRN #0 tablet 05/23/16 [Rx] Albuterol Sulfate [Albuterol Inhaler] 2 puff IH [id number] PRN #0 inhaler 05/23/16 [Rx] Aspirin Enteric Coated [Aspirin EC] 81 mg PO DAILY #0 tablet. 05/23/16 [Rx] Atenolol [Tenormin] 25 mg PO DAILY #0 tablet 05/23/16 [Rx] Budesonide/Formoterol 80/4.5 [Symbicort 80/4.5] 1 puff IH BIDR #0 inhaler 05/23/16 [Rx] Clopidogrel [Plavix] 75 mg PO DAILY #0 tablet 05/23/16 [Rx] Escitalopram [Lexapro] 20 mg PO DAILY #30 tablet 05/23/16 [Rx] Ibuprofen [Motrin] 400 mg PO Q8HR PRN #0 tablet 05/23/16 [Rx] LORazepam [Ativan] 0.5 mg PO TID PRN #0 tablet 05/23/16 [Rx] Omeprazole [PriLOSEC] 20 mg PO DAILY@0630 #0 capsule. 05/23/16 [Rx] Furosemide [Lasix] 40 mg PO DAILY PRN 11/12/18 [History] Allergies/Adverse Reactions: Allergy/AdvReac Type Severity Reaction Status Date / Time No Known Allergies Allergy Verified 11/12/18 19:22 Certification: Further, I certify that my clinical findings support that this patient is homebound (i.e. absences from home require considerable and taxing effort and are for medical reasons or buddhism services or infrequently or short duration when for other reasons) because: Homebound Reason: Patient requires assistance of a person or device to safely leave home, Leaving home requires considerable and taxing effort due to condition Attestation: My signature below is to certify that this patient is under my care and that I, or nurse practitioner, or a physician's assistant store manager sales working with me, has a [id number] encounter with this patient.
[2018-11-17 13:32] VITALS: BP 108/65
--- NOTE | 2018-11-17 13:39 | Discharge Summary ---
Addendum entered and electronically signed by Reese Nevarez MD 11/17/18 13:54: I have personally performed a face to face evaluation on this patient. I have r eviewed and agree with the care plan. History and Exam by me shows: Patient is complaining of right sided muscular pain at flank. There is no localized tenderness, etc. Her breathing is about the same as yesterday. Occupational and physical therapy noticed that she is highly unmotivated to participate in activities of daily living or in ambulation. Per their assessment, this is apparently the same as she was doing at home as she continues to say, "my daughters do this for me at home." Her no other acute changes. Discussed care with other providers and/or nursing. Patient has no complaint of chest discomfort, dyspnea, orthopnea, palpitations, nausea or vomiting, constipation or diarrhea, other changes in bowel habits, difficulty with urination, rash or itching, or other new complaints, except as mentioned above. Review of systems is otherwise negative. Examination: (Except as mentioned above): General: In no apparent distress. Alert and oriented 3. Nondiaphoretic. Head: Atraumatic and normocephalic. Respiratory: No use of accessory muscles. Lungs are clear throughout except rare sonorous rhonchi. Normal to mildly diminished airflow. Cardiovascular: Regular rate and rhythm without murmur appreciated. Abdomen: Bowel sounds are normal. No hepatosplenomegaly mass or tenderness appreciated. Morbidly obese and therefore difficult to palpate deeply. Extremities: No cyanosis clubbing or edema. Skin: Warm and non-diaphoretic with no new lesions noted. She will be discharged on a burst of steroids as well as a week of antibiotics. Because of her participation in therapy, she is not a current rehabilitation candidate. We will try home physical therapy. Nursing and psych social worker have communicated this to family. Original Note: Orders not resulted at time of discharge: Pending orders 11/12/18 20:33 Culture,Blood [BC] Stat 11/17/18 13:23 BMP [Basic Metabolic Panel] Stat Date of Encounter: 11/17/18 Time of Encounter: 13:37 - Discharge Diagnosis (1) Acute exacerbation of chronic obstructive pulmonary disease (COPD) Priority: Primary Status: Acute Comments: Continue home oxygen at 3 L. Start Levaquin 500 mg daily for 7 days and prednisone 40 mg for 5 days. Patient is improving. Follow up with PCP. (2) Hypertension Priority: Primary Status: Chronic Comments: Continue current medications. Follow up with PCP. Qualifiers: Hypertension type: essential hypertension Qualified Code(s): I10 - Essential (primary) hypertension Hospital course: Ms. Devlin is a 82 year old female discharging to home status post COPD exacerba tion. Patient improving. Denies fever, chills, nausea vomiting or diarrhea. Denies shortness of breath or chest pain. Has chronic O2 at home that she wears at 3 L per nasal cannula. Was treated with IV Levaquin and steroids. Will continue PO Levaquin and prednisone. Patient has had poor appetite. Continue megace. Blood pressure was elevated, Norvasc and lisinopril added. Follow up with PCP within one week. Discharge discussed with: patient, family, nurse, social work - Time Spent with Patient Total time spent providing and/or coordinating discharge services: Time spent: Greater than 30 minutes - Discharge Medications Prescriptions: No Action Acetaminophen [Tylenol] 650 mg PO Q6HR PRN #0 tablet PRN Reason: Pain Albuterol Sulfate [Albuterol Inhaler] 2 puff IH [id number] PRN #0 inhaler PRN Reason: Shortness Of Breath/Wheezing Ibuprofen [Motrin] 400 mg PO Q8HR PRN #0 tablet PRN Reason: Fever/Pain Aspirin Enteric Coated [Aspirin EC] 81 mg PO DAILY #0 tablet. Atenolol [Tenormin] 25 mg PO DAILY #0 tablet Budesonide/Formoterol 80/4.5 [Symbicort 80/4.5] 1 puff IH BIDR #0 inhaler Clopidogrel [Plavix] 75 mg PO DAILY #0 tablet Escitalopram [Lexapro] 20 mg PO DAILY #30 tablet LORazepam [Ativan] 0.5 mg PO TID PRN #0 tablet PRN Reason: Anxiety Omeprazole [PriLOSEC] 20 mg PO DAILY@0630 #0 capsule. Furosemide [Lasix] 40 mg PO DAILY PRN PRN Reason: Edema Home Medications: Acetaminophen [Tylenol] 650 mg PO Q6HR PRN #0 tablet 05/23/16 [Rx] Albuterol Sulfate [Albuterol Inhaler] 2 puff IH [id number] PRN #0 inhaler 05/23/16 [Rx] Aspirin Enteric Coated [Aspirin EC] 81 mg PO DAILY #0 tablet. 05/23/16 [Rx] Atenolol [Tenormin] 25 mg PO DAILY #0 tablet 05/23/16 [Rx] Budesonide/Formoterol 80/4.5 [Symbicort 80/4.5] 1 puff IH BIDR #0 inhaler 05/23/16 [Rx] Clopidogrel [Plavix] 75 mg PO DAILY #0 tablet 05/23/16 [Rx] Escitalopram [Lexapro] 20 mg PO DAILY #30 tablet 05/23/16 [Rx] Ibuprofen [Motrin] 400 mg PO Q8HR PRN #0 tablet 05/23/16 [Rx] LORazepam [Ativan] 0.5 mg PO TID PRN #0 tablet 05/23/16 [Rx] Omeprazole [PriLOSEC] 20 mg PO DAILY@0630 #0 capsule. 05/23/16 [Rx] Furosemide [Lasix] 40 mg PO DAILY PRN 11/12/18 [History] Lisinopril [Zestril] 10 mg PO DAILY #14 tablet 11/17/18 [Rx] Megestrol Acetate [Megace] 400 mg PO DAILY 7 Days #70 ml 11/17/18 [Rx] Nystatin POWDER [Nystop] 1 appl TP BID #1 bottle 11/17/18 [Rx] amLODIPine [Norvasc] 10 mg PO DAILY #28 tablet 11/17/18 [Rx] Allergies/Adverse Reactions: Allergy/AdvReac Type Severity Reaction Status Date / Time No Known Allergies Allergy Verified 11/12/18 19:22 Date of admission: 11/13/18 14:01 Primary care physician: Sherita Kline APN Consults: 11/16/18 12:06 Consult to Occupational Therapy [CONS] Routine Comment: Evaluate, develop and implement POC Reason for Consult: Weak, adls assessment Does patient have active BEDREST order?: No Is patient medically & hemodynamically stable?: Yes Patient assessed for mobility or mobilized this visit?: Yes Consult to Physical Therapy [CONS] Routine Comment: Evaluate, develop and implement POC Reason for Consult: Weak; ambulatory assessment Does patient have active BEDREST order?: No Is patient medically & hemodynamically stable?: Yes Patient assessed for mobility or mobilized this visit?: Yes Discharging clinician: Reese Nevarez Anticipated date of discharge: 11/17/18 - Constitutional Vitals: Temp Pulse Resp BP Pulse Ox 97.9 F 82 22 108/65 96 11/17/18 11:13 11/17/18 13:30 11/17/18 11:13 11/17/18 13:30 11/17/18 11:13 General appearance: Present: cooperative, mild distress, A&O X 3, pleasant, no acute distress, obese, answers questions appropriately - Head Head exam: Present: atraumatic, normocephalic - Eye Eye exam: Present: PERRL, conjuntiva pink, sclera anicteric Pupils: Present: PERRL - Neck Neck exam general surgery: Present: supple, trachea midline. Absent: lymphadenopathy - Respiratory Respiratory exam: Present: CTAB. Absent: accessory muscle use, rales, rhonchi, wheezes Additional comments: diminished bilat bases. - Cardiovascular Cardiovascular exam: Present: RRR, +S1, +S2. Absent: diastolic murmur, gallop, rubs, systolic murmur - GI/Abdominal GI/Abdominal exam: Present: normal bowel sounds, soft, no peritoneal signs. Absent: distended, tenderness - Extremities Exam Extremities exam: Present: warm, radial pulses palpable and symmetrical. Absent: calf tenderness, cyanotic, pedal edema - Neurological Exam Neurological exam: Present: CN II-XII intact, oriented X3, no focal deficits. Absent: pronater drift, facial droop, speech deficit - Skin Skin exam: Present: dry, intact - Patient Status Disposition: Home Health Service Condition: Fair Functional capacity at discharge: uses cane/walker Overall status at discharge: patient is progressing back to baseline - Discharge Instructions Follow Up With: Sherita Kline APN [Primary Care Provider] - - Diet and Activity Activity: as per physical therapy Diet: advance to your usual diet
[2018-11-17 15:40] LABS: BUN/Creatinine Ratio 26 (6-26); Blood Urea Nitrogen 19 mg/dL (8-23); Carbon Dioxide 32 mEq/L (23-29); Chloride 92 mEq/L (98-107); Glucose 293 mg/dL (70-105); Osmolality,Calculated 281 (280-300); Potassium 3.4 mEq/L (3.5-5.1); Sodium 129 mEq/L (136-145); eGFR For Non-African Americans > 60 (> 60)
[2018-11-18] MEDS ORDERED: levoFLOXacin 500 MG TABLET PO SCH (09:00)
[2018-11-18] MEDS ORDERED: predniSONE 20 MG TABLET PO SCH (09:00)
== END 2018-11-17 16:25 | disposition home health service (06) | DRG 190 ==
LOC: EMEROOGRE 19:03 → INPGRE 19:03
PROVIDERS: ADMIT Internal Medicine; ATTEND Internal Medicine